=== PATIENT | female | born 1995 | race Hispanic/Latino ===

== ENCOUNTER → 2023-09-19 | Outpatient (REF) | payer BC ==
[~2023-09-19] MED LIST: ALBUTEROL0.63 MG/3 NEB; AMOX TR-K CLV1 EAC2 PO; LAMOTRIGINE100 MG PO; LEVOFLOXACIN750 MG PO; PHENERGAN SUPP25 MG; PROMETHAZINE HC25 M1 PO; PROTONIX20 MG PO; SUCRALFATE1 GM PO; ZOLOFT50 MG
== END ==
LOC: NM 13:09
PROVIDERS: ATTEND Surgery
DX: R13.10 Dysphagia, unspecified (principal); R11.0 Nausea; R10.13 Epigastric pain
CPT/HCPCS: 36415; 78227; 84702; A9537